=== PATIENT | male | born 1990 | race African-American/Black ===

== ENCOUNTER 2021-08-18 12:47 | Emergency (ER) | payer SELFPAY ==
[2021-08-20 22:06] LABS: CHLAMYDIA TRACHOMATIS, NAA Negative (Negative); NEISSERIA GONORRHOEAE, NAA Negative (Negative)
== END 2021-08-18 13:45 | disposition home or self-care (01) ==
LOC: FER 12:47
PROVIDERS: Nurse Practitioner Family
DX: Z20.2 Contact with and (suspected) exposure to infections with a predominantly sexual mode of transmission (principal); Z28.310 Unvaccinated for COVID-19
CPT/HCPCS: 87491; 87591; 99283; J0696